=== PATIENT | male | born 1965 | race Two or more races ===

== ENCOUNTER 2018-12-25 08:37 | Day surgery (SDC) | payer BC ==
[2018-12-25] MEDS ORDERED: LIDOCAINE 2% MDV (20MG/ML) 20ML VIAL IV ONE (08:38)
[2018-12-25] MEDS ORDERED: PROPOFOL 10 MG/ML VIAL IV ONE (08:38)
[2018-12-25] MEDS ORDERED: FENTANYL PF 100MCG/2ML VIAL IV ONE (08:38)
--- NOTE | 2018-12-27 08:21 | Operative Note ---
OPERATION: COLONOSCOPY to the cecum with cold snare polypectomy. INDICATION: High-risk screening in this patient with a family history of colon cancer (mother on 2 occasions). ANESTHESIA: Intravenous sedation was administered by the department of anesthesiology and included Diprivan titrated to effect. PROCEDURE: Following informed consent from this alert individual including a discussion of the risks and benefits of the procedure and an opportunity for the patient to ask questions, the patient was in the left lateral decubitus position. A digital rectal examination was performed. No abnormalities were noted. Following this, the Olympus [id number] video colonoscope was inserted into the rectum without resistance. The rectal mucosa had a normal appearance with normal folds and distensibility. The colonoscope was advanced up through the bowel to the level of the cecum without much difficulty. Throughout the bowel the mucosa appeared normal, the folds were normal, and the bowel was fairly well distensible. Scattered diverticula were seen in the sigmoid colon with a few diverticula in the ascending colon as well. The cecum was well defined by noting the appendiceal orifice and ileocecal valve. The colon preparation overall was adequate. From the base of the cecum, the colonoscope was then withdrawn. In the transverse colon there was a sessile 6 mm polyp behind a fold which was removed with cold snare polypectomy and suctioned through the endoscope into a collection trap. No other polyps were seen throughout. Again diverticulosis was noted in the sigmoid colon. Retroflexion in the rectum was endoscopically normal. The endoscope was withdrawn. The patient tolerated the procedure well and was returned to the recovery area in stable condition. IMPRESSION: 1. A 6 mm transverse colon polyp remove with cold snare polypectomy. 2. Diverticulosis in the sigmoid and ascending colon. 3. The previously noted scarring with edematous mucosa in the descending colon had essentially resolved. As always, thank you for allowing me to participate in the care of your patient. ELIZABETH
--- NOTE | 2018-12-27 08:30 | Operative Note ---
OPERATION: ESOPHAGOGASTRODUODENOSCOPY. INDICATION: Chronic gastroesophageal reflux disease with pyrosis. The patient had previous fundoplication to repair a hiatal hernia. He has breakthrough symptoms depending on the foods he eats. Upper endoscopy is performed at this time for further evaluation. ANESTHESIA: Intravenous sedation was administered by the department of anesthesiology and included Diprivan titrated to effect. PROCEDURE: Following informed consent from this alert individual, including a discussion of the risks and benefits of the procedure and an opportunity for the patient to ask questions, the patient was in the left lateral decubitus position. The Olympus [id number] video endoscope was inserted into the esophagus without resistance. The proximal esophagus had a normal appearance with normal folds and distensibility. The mid and distal esophagus likewise was free from changes. The squamocolumnar junction was smooth, well defined, and approximated the diaphragmatic hiatus. The structure was traversed and the stomach was entered. There was a small amount of retained solid but some liquid noted within the stomach, and the liquid was suctioned through the endoscope into a collection container. Visualization of the stomach was good. There were no ulcerations or erosions noted. The pylorus was patent. The duodenal bulb, sweep and descending duodenum were examined in a serial fashion and found to be normal. The endoscope was then withdrawn back into the body of the stomach, where retroflexion accomplished following air insufflation revealed an intact fundoplication. The instrument was then straightened and withdrawn back through a normal esophagus and removed from the patient. There was some focal spasm noted in the esophagus itself which gave way rapidly. The patient tolerated the procedure well and was returned to the recovery area in stable condition. IMPRESSION: 1. Some retained liquid and some small amount of solid debris in the stomach. Suctioned was performed with adequate visualization. 2. Previous fundoplication which appeared healthy. 3. Some mild spasm of the esophagus noted. RECOMMENDATION: The patient will continue on his acid blockade therapy. Followup will also be with his primary care physician. As always, thank you for allowing me to participate in the care of your patient. ELIZABETH
== END 2018-12-25 11:45 | disposition home or self-care (01) ==
LOC: HOP 08:37
PROVIDERS: ATTEND Internal Medicine Gastroenterology
DX: Z12.11 Encounter for screening for malignant neoplasm of colon (principal); Z80.0 Family history of malignant neoplasm of digestive organs; D12.3 Benign neoplasm of transverse colon; K57.30 Diverticulosis of large intestine without perforation or abscess without bleeding; K21.9 Gastro-esophageal reflux disease without esophagitis; R12 Heartburn; Z98.890 Other specified postprocedural states; K22.4 Dyskinesia of esophagus; E78.00 Pure hypercholesterolemia, unspecified
CPT/HCPCS: 45385; 43235; 00813; J3010